=== PATIENT | female | born 1950 | race Two or more races ===

== ENCOUNTER 2017-11-13 14:44 | Emergency (ER) | payer OTHER ==
[~2017-11-13] VITALS: Ht 152.4 cm; Wt 64.9 kg
[2017-11-13] MEDS ORDERED: ATENOLOL100 MG (15:13)
[2017-11-13] MEDS ORDERED: METFORMIN HCL500 MG (15:13)
[2017-11-13] MEDS ORDERED: LISINOPRIL5 MG (15:13)
[2017-11-13] MEDS ORDERED: ATORVASTATIN CA20 MG (15:14)
[2017-11-13] MEDS ORDERED: MEDROLPACK PO (17:04)
== END 2017-11-13 18:01 | disposition home or self-care (01) ==
LOC: ER 14:44
DX: L53.8 Other specified erythematous conditions (principal); R06.02 Shortness of breath; T78.49XA Other allergy, initial encounter; X58.XXXA Exposure to other specified factors, initial encounter